=== PATIENT | female | born 1940 | race Hispanic/Latino ===

== ENCOUNTER 2017-03-21 08:17 | Emergency (ER) | payer MEDICARE, OTHER ==
[2017-03-21 08:28] VITALS: BMI 30.2
--- NOTE | 2017-03-21 08:50 | C.PDOC ---
History Of Present Illness 76 y/o female with persistent diarrhea and occasional fecal incontinence for more than 2 months. pt treated with cipro and flagyl during this time. seen by GI Dr Noble yesterday and sent to to ED for evaluation for diverticulitis. pt has no abdominal pain, no fever or chills, good appetite. Time Seen by Provider: 03/21/17 08:34 Chief Complaint (Nursing): GI Problem History Per: Patient, Family Onset/Duration Of Symptoms: Days (60) Current Symptoms Are (Timing): Still Present Associated Symptoms: Diarrhea. denies: Fever, Chills, Vomiting Past Medical History Reviewed: Historical Data, Nursing Documentation, Vital Signs Vital Signs: Last Vital Signs Temp 97.8 F 03/21/17 12:24 Pulse 72 03/21/17 12:24 Resp 18 03/21/17 12:24 BP 105/67 03/21/17 12:24 Pulse Ox 97 03/22/17 11:25 - Medical History PMH: Arthritis, Asthma, Colonic Polyps, Emphysema, Gall Bladder Disease, Hypothyroidism (THYROID REMOVED), Osteoporosis Denies: Chronic Kidney Disease Surgical History: Cholecystectomy, Endoscopy - [facility] Procedures CLOSED ENDOSCOPIC BIOPSY OF LARGE INTESTINE (06/24/14) ESOPHAGOGASTRODUODENOSCOPY [EGD] W/CLOSED BIOPSY (06/24/14) Family History: States: Unknown Family Hx - Social History Hx Alcohol Use: No Hx Substance Use: No Review Of Systems Constitutional: Negative for: Fever, Chills Respiratory: Positive for: Wheezing (hx copd). Negative for: Cough Gastrointestinal: Positive for: Diarrhea. Negative for: Nausea, Vomiting Genitourinary: Negative for: Dysuria, Frequency Physical Exam - Physical Exam Appears: Non-toxic, No Acute Distress Skin: Normal Color, Warm, Dry Head: Normacephalic Oral Mucosa: Moist Neck: Normal ROM Chest: Symmetrical, No Deformity, No Tenderness Cardiovascular: Rhythm Regular, No Murmur Respiratory: Wheezing (scant bilateral expiratory wheeze) Gastrointestinal/Abdominal: Bowel Sounds, Soft, No Tenderness Neurological/Psych: Oriented x3 ED Course And Treatment - Laboratory Results Result Diagrams: 03/21/17 08:56 03/21/17 08:56 O2 Sat by Pulse Oximetry: 97 Medical Decision Making Medical Decision Making: ct scan neg for diverticulitis, positive for constipation. pt appears well. stool sample for c-diff neg. discussed with Dr Noble; will d/c pt with leif and f/u Dr Noble. Disposition Discussed With Dr.: Bandar Noble Doctor Will See Patient In The: Office Counseled Patient/Family Regarding: Studies Performed, Diagnosis - Disposition Referrals: Bandar Noble [Staff Provider] - Disposition: HOME/ ROUTINE Disposition Time: 13:42 Condition: STABLE Additional Instructions: Take Miralax for a few days. FOllow up with Dr Noble. Return to ER for any worse pain, fever, vomiting, or other cocnerns. Prescriptions: Polyethylene Glycol 3350 [Miralax] 17 gm PO DAILY #5 ml Forms: Gen Discharge Inst Tajik Print Language: KYRGYZ - Clinical Impression Clinical Impression: Abdominal pain, Constipation
[2017-03-21] MEDS ORDERED: Albuterol 0.083% Inhal Sol (2.5 mg/3 mL) UD INH STA (08:52)
[2017-03-21] MEDS ORDERED: Iohexol 240 (50 ml) PO STA (08:55)
[2017-03-21 09:03] LABS: BASO # 0.1 K/uL (0.0-0.2); BASO % 0.6 % (0.0-2.0); EOS # 0.9 K/uL (0.0-0.7); EOS % 9.1 % (0.0-4.0); HEMATOCRIT 42.4 % (34.0-47.0); LYMPH # 1.9 K/uL (1.0-4.3); LYMPH % 19.8 % (20.0-40.0); MEAN CELL VOLUME 91.7 fL (81.0-99.0); MEAN CORPUSCULAR HEMOGLOBIN 30.7 pg (27.0-31.0); MEAN CORPUSCULAR HGB CONC 33.5 g/dL (33.0-37.0); MEAN PLATELET VOLUME 11.3 fL (7.2-11.7); MONO # 0.6 K/uL (0.0-0.8); MONO % 6.7 % (0.0-10.0); RED CELL DISTRIBUTION WIDTH 13.2 % (11.5-14.5); WHITE BLOOD COUNT 9.7 K/uL (4.8-10.8)
[2017-03-21 09:09] LABS: CHLORIDE 101 mmol/L (98-107)
[2017-03-21 09:10] LABS: POTASSIUM 4.2 mmol/L (3.6-5.2); SODIUM 139 mmol/L (132-148)
[2017-03-21 09:12] LABS: ALKALINE PHOSPHATASE 77 U/L (38-126); AST/SGOT 43 U/L (14-36); BILIRUBIN,TOTAL 0.7 mg/dL (0.2-1.3); CARBON DIOXIDE 26 mmol/L (22-30); GFR AFRICAN-AMERICAN > 60
[2017-03-21 09:13] LABS: ALT/SGPT 34 U/L (9-52); BLOOD UREA NITROGEN 18 mg/dL (7-17); CALCIUM 9.1 mg/dl (8.6-10.4); GLUCOSE,RANDOM 90 mg/dL (65-105)
[2017-03-21] MEDS ORDERED: Albuterol 0.083% Inhal Sol (2.5 mg/3 mL) UD ONE (09:24)
[2017-03-21] MEDS ORDERED: Iohexol 240 (50 ml) ONE (09:43)
[2017-03-21 09:53] LABS: RBC URINE 4 /hpf (0-3); URINE BACTERIA FEW (<OCC); URINE BILIRUBIN NEGATIVE (NEGATIVE); URINE BLOOD NEGATIVE (NEGATIVE); URINE COLOR Yellow (YELLOW); URINE GLUCOSE (UA) NORMAL (Normal); URINE KETONE NEGATIVE (NEGATIVE); URINE LEUKOCYTE ESTERASE TRACE Leu/uL (Negative); URINE PROTEIN NEGATIVE (NEGATIVE); URINE UROBILINOGEN NORMAL mg/dL (0.2-1.0); WBC URINE 4 /hpf (0-5)
[2017-03-21] MEDS ORDERED: Iodixanol 320 MG/ML 100 ML BOTTLE IV ONE (11:04)
--- NOTE | 2017-03-21 11:55 | CT ---
PROCEDURE: CT Abdomen and Pelvis with oral and IV contrast. HISTORY: abd pain COMPARISON: CT abdomen and pelvis with contrast performed 01/11/16 TECHNIQUE: Contiguous axial images of the abdomen and pelvis. Oral and IV contrast was administered. Coronal and Sagittal reformats generated and reviewed. Contrast dose: 100 cc Visipaque 320 Radiation dose: Total exam DLP = 806.01 mGy-cm. This CT exam was performed using one or more of the following dose reduction techniques: Automated exposure control, adjustment of the mA and/or kV according to patient size, and/or use of iterative reconstruction technique. FINDINGS: LOWER THORAX: Bibasilar atelectasis. No visible pleural effusion or pneumothorax. Small hiatal hernia. LIVER: Hypoattenuation of the liver compatible with hepatic steatosis. GALLBLADDER AND BILE DUCTS: Cholecystectomy. Mild intrahepatic biliary ductal dilatation likely secondary to cholecystectomy. PANCREAS: Unremarkable unenhanced appearance. SPLEEN: Unremarkable unenhanced appearance. ADRENALS: Unremarkable unenhanced appearance. KIDNEYS AND URETERS: The kidneys enhance symmetrically. No hydronephrosis or obstructing renal calculus. BLADDER: The urinary bladder appears unremarkable. REPRODUCTIVE: Uterus is present. APPENDIX: The appendix appears within normal limits of caliber. No secondary signs of acute appendicitis. BOWEL: The stomach is nondistended. The bowel loops appear within normal limits of caliber without evidence of intestinal obstruction. Moderate constipation. PERITONEUM: No significant free fluid. No definite free air. LYMPH NODES: No bulky lymphadenopathy identified. VASCULATURE: No aortic aneurysm. 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 Marked osseous demineralization. Curvature of the thoracolumbar spine convex to the left. Multilevel degenerative changes. OTHER FINDINGS: None. IMPRESSION: Mild bibasilar atelectasis. Cholecystectomy with mild intrahepatic biliary ductal dilatation. Moderate constipation. Hepatic steatosis. 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 Additional findings as above.
[2017-03-21 12:25] VITALS: BP 105/67; PULSE 72; RESP 18; TEMP 97.8
[2017-03-21 13:33] VITALS: O2SAT 97
== END 2017-03-21 13:53 | disposition home or self-care (01) ==
LOC: C.ER 08:17
DX: K59.00 Constipation, unspecified (principal); R06.2 Wheezing
CPT/HCPCS: 74177; 80053; 81001; 83690; 85025; 87045; 87230; 94640; 99285; G0328; Q9966; Q9967

== ENCOUNTER 2017-10-17 07:33 | Day surgery (SDC) | payer MEDICARE, OTHER ==
--- NOTE | 2017-10-17 09:45 | CP.SDSHP ---
Same Day Surgery H & P - History Proposed Procedure: COLONSCOPY Pre-Op Diagnosis: SEE NOTES - Previous Medical/Surgical History Cardiac: Hypertension Pulmonary: Asthma Endocrine/Metabolic: Thyroid Disease, Other Neuro: Backaches Misc: Other Pain: 4.Moderate Pain Previous Surgical History: ORTHO. SX. - Allergies Allergies: Allergies No Known Allergies Allergy (Verified 03/21/17 08:30) - Physical Exam General Appearance: N Vital Signs: Vital Signs 10/17/17 08:15 Temperature 96.8 F L Pulse Rate 60 Respiratory 20 Rate Blood Pressure 110/58 L O2 Sat by Pulse 99 Oximetry Mental Status: Alert & Oriented x3 Neuro: WNL Heart: Other Lungs: Other GI: Other - {Optional Preform as Required} Breast: WNL Abdomen: Other Rectal: Other Integument: WNL : WNL Ortho: Other ENT: WNL - Impression Pt. Evaluated Today:Candidate for Anesthesia & Procedure: Yes - Date & Time Time: 09:46 Short Stay Discharge - Short Stay Discharge Admitting Diagnosis/Reason for Visit: DIARRHEA Disposition: HOME/ ROUTINE
[2017-10-17] MEDS ORDERED: Propofol 10 mg/ml Inj (20 ML) ONE (09:46)
[2017-10-17] MEDS ORDERED: Lactated Ringer's 1,000 ML IV ONE (09:50)
[2017-10-17] MEDS ORDERED: Belladonna-Phenobarbital PO ONE (10:30)
[2017-10-17 10:32] VITALS: TEMP 97.5
[2017-10-17] MEDS ORDERED: Pantoprazole 40 mg EC Tab PO ONE (10:40)
[2017-10-17 12:01] VITALS: O2SAT 99
[2017-10-17 12:04] VITALS: BP 128/61; PULSE 61; RESP 15
== END 2017-10-17 11:55 | disposition home or self-care (01) ==
LOC: C.ENDO 07:33
PROVIDERS: ATTEND Specialist
DX: K57.90 Diverticulosis of intestine, part unspecified, without perforation or abscess without bleeding (principal); K64.8 Other hemorrhoids; K64.4 Residual hemorrhoidal skin tags; D12.5 Benign neoplasm of sigmoid colon
CPT/HCPCS: 45388; 88305; J2704; J7120